=== PATIENT | female | born 1965 | race Caucasian/White ===

== ENCOUNTER 2017-08-21 18:46 | Emergency (ER) | payer OTHER ==
[~2017-08-21] VITALS: Ht 162.6 cm; Wt 64.9 kg
[2017-08-21 19:09] VITALS: Ht 162.6 cm; Wt 64.9 kg
[2017-08-21 21:10] VITALS: BP 126/63
== END 2017-08-21 21:10 | disposition home or self-care (01) ==
LOC: ED 18:46
DX: F20.9 Schizophrenia, unspecified (principal); F41.9 Anxiety disorder, unspecified; F31.9 Bipolar disorder, unspecified; Z86.59 Personal history of other mental and behavioral disorders

== ENCOUNTER 2017-11-23 11:37 | Emergency (ER) | payer OTHER ==
[~2017-11-23] VITALS: Ht 152.4 cm; Wt 71.7 kg
[2017-11-23 12:06] VITALS: BP 103/64; Ht 152.4 cm; Wt 71.7 kg
== END 2017-11-23 13:00 | disposition home or self-care (01) ==
LOC: ED 11:37
DX: H65.92 Unspecified nonsuppurative otitis media, left ear (principal); Z88.5 Allergy status to narcotic agent

== ENCOUNTER 2018-01-13 15:00 | Emergency (ER) | payer OTHER ==
[~2018-01-13] VITALS: Ht 152.4 cm; Wt 73.9 kg
[2018-01-13 15:20] VITALS: BP 124/71; Ht 152.4 cm; Wt 73.9 kg
== END 2018-01-13 16:05 | disposition home or self-care (01) ==
LOC: ED 15:00
DX: F41.9 Anxiety disorder, unspecified (principal); S93.401A Sprain of unspecified ligament of right ankle, initial encounter; W22.8XXA Striking against or struck by other objects, initial encounter; Y93.89 Activity, other specified; Y92.89 Other specified places as the place of occurrence of the external cause; Y99.8 Other external cause status
CPT/HCPCS: Q0092

== ENCOUNTER 2018-01-24 14:44 | Emergency (ER) | payer OTHER ==
[~2018-01-24] VITALS: Ht 149.9 cm; Wt 75.3 kg
[2018-01-24 14:51] VITALS: BP 137/94; Ht 149.9 cm; Wt 75.3 kg
== END 2018-01-24 15:47 | disposition home or self-care (01) ==
LOC: ED 14:44
DX: F41.9 Anxiety disorder, unspecified (principal); Z88.5 Allergy status to narcotic agent; Z88.8 Allergy status to other drugs, medicaments and biological substances

== ENCOUNTER 2018-03-09 12:41 | Emergency (ER) | payer OTHER ==
[~2018-03-09] VITALS: Ht 152.4 cm; Wt 73.0 kg
[2018-03-09 12:43] VITALS: BP 110/68; Ht 152.4 cm; Wt 73.0 kg
== END 2018-03-09 13:51 | disposition home or self-care (01) ==
LOC: ED 12:41
DX: M54.5 Low back pain (principal); F41.9 Anxiety disorder, unspecified; F31.9 Bipolar disorder, unspecified; F17.210 Nicotine dependence, cigarettes, uncomplicated; Z88.6 Allergy status to analgesic agent; Z71.6 Tobacco abuse counseling
CPT/HCPCS: 99406